=== PATIENT | male | born 1955 | race Caucasian/White ===

== ENCOUNTER 2017-04-17 10:35 | Observation (INO) | payer OTHER ==
[~2017-04-17] VITALS: Ht 182.9 cm; Wt 161.0 kg
[~2017-04-17 10:35] MED LIST: CEPHALEXIN500 MG PO; CIPRO 500MG TA500 MG PO; PERCOCET 325 MG1 TA2 PO
[2017-04-17 11:42] LABS: ABSOLUTE BASOPHIL COUNT 0.1 /CUMM (0.0-0.2); ABSOLUTE EOSINOPHIL COUNT 0.5 /CUMM (0.0-0.7); ABSOLUTE GRANULOCYTE CT 8.8 /CUMM (1.4-6.5); ABSOLUTE LYMPH COUNT 2.3 /CUMM (1.2-3.4); BASOPHIL % 0.7 % (0.0-2.0); EOSINOPHIL % 3.8 % (0-5); GRANULOCYTE % 69.5 % (42.2-75.2); HEMATOCRIT 50.7 % (42-52); MEAN CORPUSCULAR HGB 32.8 PG (27.0-31.0); MEAN CORPUSCULAR HGB CONC 34.2 G/DL (33.0-37.0); MEAN CORPUSCULAR VOLUME 95.7 FL (80.0-94.0); MEAN PLATELET VOLUME 7.9 FL (7.4-10.4); PLATELET COUNT 248 /CUMM (130-400); RBC DISTRIBUTION WIDTH 13.5 % (11.5-14.5); RED BLOOD CELL CT 5.29 /CUMM (4.70-6.10); WHITE BLOOD CELL COUNT 12.7 /CUMM (4.8-10.8)
--- NOTE | 2017-04-17 12:24 | ED CARDIAC/CP/PALPITATIONS ---
History of Present Illness General Chief Complaint: Chest Pain Stated Complaint: CHEST PAIN Source: patient Exam Limitations: no limitations Vital Signs & Intake/Output Vital Signs & Intake/Output Vital Signs Date Time Temp Pulse Resp B/P B/P Pulse O2 O2 Flow FiO2 Mean Ox Delivery Rate 04/17 1628 97.3 66 16 137/79 95 Room Air 04/17 1315 97.8 68 18 110/59 95 Room Air 04/17 1039 98.4 69 18 166/100 98 Room Air Allergies Coded Allergies: NO KNOWN ALLERGIES (03/15/13) NKA PER ANTIBIOTIC ORDER SHEET OF 03/15/13 - S Reconcile Medications Ascorbate Calcium (Vitamin C) 500 MG TABLET 1 TAB PO DAILY SUPPLEMENT ( Reported) Aspirin (Adult Low Dose Aspirin EC) 81 MG TABLET.DR 1 TAB PO DAILY HEART/BP ( Reported) Atenolol 50 MG TABLET 1 TAB PO DAILY BP (Reported) Atorvastatin Calcium (Lipitor) 80 MG TABLET 1 TAB PO DAILY CHOLESTEROL ( Reported) Cholecalciferol (Vitamin D3) (Vitamin D) 1,000 UNIT TABLET 1 TAB PO DAILY SUPPLEMENT (Reported) Cyanocobalamin (Vitamin B-12) (Unknown Strength) TABLET (Unknown Dose) PO DAILY SUPPLEMENT (Reported) Diclofenac Sodium 75 MG TABLET.DR 1 TAB PO BID PAIN/INFLAMMATION (Reported) Empagliflozin (Jardiance) 25 MG TABLET 1 TAB PO DAILY DM (Reported) Ezetimibe (Zetia) 10 MG TABLET 1 TAB PO DAILY CHOLESTEROL (Reported) Metformin HCl 500 MG TABLET 1 TAB PO 4XDAILY DM (Reported) [place]-3 Fatty Acids/Fish Oil (Fish Oil 1,200 MG Softgel) 360 MG-1,200 MG CAPSULE 1 CAP PO DAILY SUPPLEMENT (Reported) Ramipril 10 MG CAPSULE 1 CAP PO DAILY BP (Reported) Venlafaxine HCl (Venlafaxine HCl ER) 75 MG CAP.ER.24H 1 CAP PO DAILY MENTAL HEALTH (Reported) Triage Note: 61 YO MALE TO TRIAGE C/O L SIDED CHEST PAIN X4 DAYS. STATES PAIN SITS IN L SIDE OF CHEST. DENIES NAUSEA/VOMTIING. C/O SLIGHT SOB. HX OF FL, HTN, HIGH CHOLESTEROL. Triage Nurses Notes Reviewed? yes Onset: Abrupt Duration: day(s): (5) Timing: recent history Quality/Severity: moderate, severe Radiation: no radiation Activities at Onset: none HPI: 61-year-old male comes into the emergency room for further evaluation of left- sided chest pain. Symptoms began going on for the past 5 days or so. Sharp. Pain improved with a deep breath. Worse with sitting or standing. Denies any nausea vomiting or shortness of breath. History of cardiac stent placed back in 1998. Patient sees Dr. Hanks. He is a current every day smoker. (Homar Schwartz) Past History Travel History Traveled to [place] past 21 day No Medical History Any Pertinent Medical History? 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 No (Homar Schwartz) Review of Systems Review of Systems Constitutional: Reports: no symptoms. EENTM: Reports: no symptoms. Respiratory: Reports: no symptoms. Cardiovascular: Reports: see HPI. GI: Reports: no symptoms. Genitourinary: Reports: no symptoms. Musculoskeletal: Reports: see HPI. Skin: Reports: no symptoms. Neurological/Psychological: Reports: no symptoms. Hematologic/Endocrine: Reports: no symptoms. Immunologic/Allergic: Reports: no symptoms. All Other Systems: Reviewed and Negative (Homar Schwartz) Physical Exam Physical Exam General Appearance: well developed/nourished, no apparent distress, alert, awake Head: atraumatic, normal appearance Eyes: Bilateral: normal appearance. Ears, Nose, Throat: normal pharynx, normal ENT inspection, hearing grossly normal Neck: normal inspection Respiratory: normal breath sounds, no respiratory distress Cardiovascular: regular rate/rhythm Gastrointestinal: soft Back: normal inspection Extremities: normal inspection, no edema Neurologic/Psych: awake, alert, oriented x 3, normal gait, normal mood/affect Skin: intact, normal color Core Measures ACS in differential dx? No CVA/TIA Diagnosis No Sepsis Present: No Sepsis Focused Exam Completed? No (Homar Schwartz) Progress Differential Diagnosis: AMI, cholecystitis, costochondritis, musculoskeletal pain, myocarditis, pancreatitis, pericarditis, pneumonia, pneumothorax, pulmonary embolism, PUD/GERD, respiratory failure, sepsis, unstable angina Plan of Care: Orders Procedure Date/time Status Heart Healthy Diet 04/[address] in observation 04/17 181 Active ED Holding Orders 04/17 1735 Active Vital Signs 04/17 1735 Active Code Status 04/17 1735 Active URINALYSIS 04/17 1655 Active TROPONIN LEVEL 04/17 1515 Complete EKG 04/17 1515 Active Add-on Test (ER Only) 04/17 1134 Active D-DIMER 04/17 1130 Complete Add-on Test (ER Only) 04/17 1127 Active Telemetry/Certified Personal Trainer 04/17 1100 Active TROPONIN LEVEL 04/17 1100 Complete LIPASE 04/17 1100 Complete COMPREHENSIVE METABOLIC PANEL 04/17 1100 Complete CBC WITHOUT DIFFERENTIAL 04/17 1100 Complete EKG 04/17 1036 Active Laboratory Tests 04/17/17 1600: Troponin I < 0.01 04/17/17 1211: Anion Gap 12, Estimated GFR > 60, BUN/Creatinine Ratio 24.3, Glucose 101 H, Calcium 9.5, Total Bilirubin 0.6, AST 27, ALT 49, Alkaline Phosphatase 95, Troponin I < 0.01, Total Protein 7.2, Albumin 4.4, Globulin 2.8, Albumin/ Globulin Ratio 1.6, Lipase 256, D-Dimer High Sensitivty < 200 04/17/17 1125: CBC w Diff NO MAN DIFF REQ, RBC 5.29, MCV 95.7 H, MCH 32.8 H, RDW 13.5, MPV 7.9, Gran % 69.5, Lymphocytes % 18.1 L, Monocytes % 7.9, Eosinophils % 3.8, Basophils % 0.7, Absolute Granulocytes 8.8 H, Absolute Lymphocytes 2.3, Absolute Monocytes 1.0 H, Absolute Eosinophils 0.5, Absolute Basophils 0.1, PUBS MCHC 34.2 Diagnostic Imaging: Viewed by Me: Radiology Read, CT Scan. Discussed w/RAD: Radiology Read, CT Scan. Radiology Impression: PATIENT: NATHAN SINGER PRESENT AGE: 61 PATIENT ACCOUNT NO: [id number] : 55 LOCATION: [facility] ORDERING PHYSICIAN: Homar MOCTEZUMA SERVICE DATE: 04/17/17 EXAM TYPE: RAD - XRY-CHEST XRAY, PA AND LATERAL EXAMINATION: XR CHEST CLINICAL INFORMATION: Chest pain COMPARISON: 02/05/2012 TECHNIQUE: 2 views of the chest were obtained. FINDINGS: The lungs are well expanded. There is no focal consolidation, edema, or effusion. No pneumothorax. The cardiomediastinal silhouette is within normal limits. No acute osseous abnormality. Mild degenerative changes in the spine. IMPRESSION: No acute pulmonary findings. DICTATED BY: Vaibhav Toth MD DATE /TIME DICTATED:04/17/171221 CAR SCRUBBER:DACIA DATE/TIME TRANSCRIBED: 04/17/171221 CONFIDENTIAL, DO NOT COPY WITHOUT APPROPRIATE AUTHORIZATION. < Electronically signed in Other Vendor System> SIGNED BY: Janey BRYAN, Vaibhav 04/17/171225, PATIENT: NATHAN SINGER PRESENT AGE: 61 PATIENT ACCOUNT NO: [id number] : 55 LOCATION: ER ORDERING PHYSICIAN: Homar MOCTEZUMA SERVICE DATE: 04/17/17 EXAM TYPE: CAT - CT ABD & PELVIS W/O IV CONTRAS EXAMINATION: CT ABDOMEN AND PELVIS WITHOUT CONTRAST CLINICAL INFORMATION: Abdominal pain, epigastric. COMPARISON: None TECHNIQUE: Multidetector volumetric imaging was performed from the superior aspect of the liver through the pubic symphysis. Sagittal and coronal reformatted images were obtained on the technologist's workstation. DLP: 1672.3 mGy-cm FINDINGS: LUNG BASES: The visualized lung bases are unremarkable. LIVER, GALLBLADDER, AND BILIARY TREE: The liver is normal in size, shape, and attenuation. No focal hepatic lesion or biliary ductal dilatation is present. There is a punctate 3 mm calcification at the lateral margin of the gallbladder which is of uncertain etiology, either a small stone or calcification within the wall. The gallbladder is otherwise unremarkable with no gallbladder wall thickening or obvious pericholecystic inflammatory changes. PANCREAS: Unremarkable. SPLEEN: Unremarkable. ADRENAL GLANDS: Unremarkable. KIDNEYS AND URETERS: The kidneys are normal in size, shape, and attenuation. No hydronephrosis, hydroureter, or calculi seen. There is moderate bilateral perinephric stranding. BLADDER: Decompressed. GASTROINTESTINAL TRACT: Stomach, small bowel, and colon are normal in caliber. No bowel wall thickening or surrounding inflammatory changes. Appendix is normal. No intraperitoneal free fluid or free air. ABDOMINAL WALL: No significant hernia is appreciated. LYMPH NODES: Normal. VASCULAR: Mild calcific atherosclerosis is present in the abdominal aorta and iliac arteries. No aneurysmal dilatation. PELVIC VISCERA: The prostate and seminal vesicles are unremarkable. OSSEOUS STRUCTURES: Multilevel degenerative disc disease is present in the lower thoracic and lower lumbar spine. There is marked facet arthropathy in the lumbar spine at L4-L5 and S1 with grade 1 anterolisthesis of L4 on L5. Mild degenerative arthritis present in the hips and SI joints. IMPRESSION: 1. No acute intra-abdominal or intrapelvic abnormalities. 2. Bilateral perinephric stranding. This is nonspecific and may be chronic in nature, though consider correlation with urinalysis to exclude underlying urinary tract infection. 3. Multilevel degenerative disc disease and facet arthropathy in the lumbar spine DICTATED BY: Chele Wade MD DATE/TIME DICTATED:04/17/171636 CAR SCRUBBER:DACIA DATE/TIME TRANSCRIBED:04/17/171636 CONFIDENTIAL, DO NOT COPY WITHOUT APPROPRIATE AUTHORIZATION. <Electronically signed in Other Vendor System> SIGNED BY: Chele Wade MD 04/17/171651, PATIENT: NATHAN SINGER PRESENT AGE: 61 PATIENT ACCOUNT NO: [id number] : 55 LOCATION: [facility] ORDERING PHYSICIAN: Homar MOCTEZUMA SERVICE DATE: 04/17/171344 EXAM TYPE: CAT - CT ABD & PELVIS W/O IV CONTRAS EXAMINATION: CT ABDOMEN AND PELVIS WITHOUT CONTRAST CLINICAL INFORMATION: Abdominal pain, epigastric. COMPARISON: None TECHNIQUE: Multidetector volumetric imaging was performed from the superior aspect of the liver through the pubic symphysis. Sagittal and coronal reformatted images were obtained on the technologist's workstation. DLP: 1672.3 mGy-cm FINDINGS: LUNG BASES: The visualized lung bases are unremarkable. LIVER, GALLBLADDER, AND BILIARY TREE: The liver is normal in size, shape, and attenuation. No focal hepatic lesion or biliary ductal dilatation is present. There is a punctate 3 mm calcification at the lateral margin of the gallbladder which is of uncertain etiology, either a small stone or calcification within the wall. The gallbladder is otherwise unremarkable with no gallbladder wall thickening or obvious pericholecystic inflammatory changes. PANCREAS: Unremarkable. SPLEEN: Unremarkable. ADRENAL GLANDS: Unremarkable. KIDNEYS AND URETERS: The kidneys are normal in size, shape, and attenuation. No hydronephrosis, hydroureter, or calculi seen. There is moderate bilateral perinephric stranding. BLADDER: Decompressed. GASTROINTESTINAL TRACT: Stomach, small bowel, and colon are normal in caliber. No bowel wall thickening or surrounding inflammatory changes. Appendix is normal. No intraperitoneal free fluid or free air. ABDOMINAL WALL: No significant hernia is appreciated. LYMPH NODES: Normal. VASCULAR: Mild calcific atherosclerosis is present in the abdominal aorta and iliac arteries. No aneurysmal dilatation. PELVIC VISCERA: The prostate and seminal vesicles are unremarkable. OSSEOUS STRUCTURES: Multilevel degenerative disc disease is present in the lower thoracic and lower lumbar spine. There is marked facet arthropathy in the lumbar spine at L4-L5 and S1 with grade 1 anterolisthesis of L4 on L5. Mild degenerative arthritis present in the hips and SI joints. IMPRESSION: 1. No acute intra-abdominal or intrapelvic abnormalities. 2. Bilateral perinephric stranding. This is nonspecific and may be chronic in nature, though consider correlation with urinalysis to exclude underlying urinary tract infection. 3. Multilevel degenerative disc disease and facet arthropathy in the lumbar spine DICTATED BY: Chele Wade MD DATE/TIME DICTATED:04/17/171636 CAR SCRUBBER:DACIA DATE/TIME TRANSCRIBED:04/17/171636 CONFIDENTIAL, DO NOT COPY WITHOUT APPROPRIATE AUTHORIZATION. <Electronically signed in Other Vendor System> SIGNED BY: Chele Wade MD 04/17/17 1652 Initial ED EKG: normal sinus rhythm, AFIB (70) (Homar Schwartz) Departure Departure Disposition: STILL A PATIENT Condition: Stable Clinical Impression Primary Impression: Chest pain with moderate risk for cardiac etiology Referrals: Mitchel BRYAN,Gabriel Kim (PCP/Family) Departure Forms: Customer Survey General Discharge Information Observation Note Spoke With: Christa Lopez MD Physician Advisor Notified: NATHAN HERNANDEZ DO Place Patient In: Non-ED OBS Care Area Rationale for Observation: My rational for observation is as follows . Patient will require cardiac consultation. Spoke with Dr. guallpa. Serial troponins. Serial labs. History of coronary disease. Patient still having chest pain. Iris. Medically safe for discharge. (Homar Schwartz) PA/RADIOISOTOPE TECHNICIAN Co-Sign Statement Statement: ED Attending supervision documentation- [x] I saw and evaluated the patient. I have also reviewed all the pertinent lab results and diagnostic results. I agree with the findings and the plan of care as documented in the PA's/RADIOISOTOPE TECHNICIAN's documentation. [] I have reviewed the ED Record and agree with the PA's/RADIOISOTOPE TECHNICIAN's documentation. [] Additions or exceptions (if any) to the PAs/RADIOISOTOPE TECHNICIAN's note and plan are summarized below: [] (Nathan Hernandez DO) Critical Care Note Critical Care Note Critical Care Time: non-applicable (Homar Schwartz)
[2017-04-17] MEDS ORDERED: LIPITOR80 M1 PO (16:32)
[2017-04-17] MEDS ORDERED: ATENOLOL50 M1 PO (16:32)
[2017-04-17] MEDS ORDERED: RAMIPRIL10 M1 PO (16:32)
[2017-04-17] MEDS ORDERED: DICLOFENAC SODI75 M2 PO (16:33)
[2017-04-17] MEDS ORDERED: ZETIA10 M1 PO (16:33)
[2017-04-17] MEDS ORDERED: VENLAFAXINE HCL75 M1 PO (16:33)
[2017-04-17] MEDS ORDERED: VITAMIN D1000 UNIT PO (16:34)
[2017-04-17] MEDS ORDERED: ADULT LOW DOSE81 MG PO (16:34)
[2017-04-17] MEDS ORDERED: METFORMIN HCL500 M3 PO (16:34)
[2017-04-17] MEDS ORDERED: JARDIANCE25 M1 PO (16:34)
[2017-04-17] MEDS ORDERED: VITAMIN B-121000 MC3 PO (16:35)
[2017-04-17] MEDS ORDERED: VITAMIN C500 M6 PO (16:35)
[2017-04-17] MEDS ORDERED: FISH OIL 1,2001 EAC4 PO (16:35)
--- NOTE | 2017-04-17 16:52 | CT SCAN REPORT ---
EXAMINATION: CT ABDOMEN AND PELVIS WITHOUT CONTRAST CLINICAL INFORMATION: Abdominal pain, epigastric. COMPARISON: None TECHNIQUE: Multidetector volumetric imaging was performed from the superior aspect of the liver through the pubic symphysis. Sagittal and coronal reformatted images were obtained on the technologist's workstation. DLP: 1672.3 mGy-cm FINDINGS: LUNG BASES: The visualized lung bases are unremarkable. LIVER, GALLBLADDER, AND BILIARY TREE: The liver is normal in size, shape, and attenuation. No focal hepatic lesion or biliary ductal dilatation is present. There is a punctate 3 mm calcification at the lateral margin of the gallbladder which is of uncertain etiology, either a small stone or calcification within the wall. The gallbladder is otherwise unremarkable with no gallbladder wall thickening or obvious pericholecystic inflammatory changes. PANCREAS: Unremarkable. SPLEEN: Unremarkable. ADRENAL GLANDS: Unremarkable. KIDNEYS AND URETERS: The kidneys are normal in size, shape, and attenuation. No hydronephrosis, hydroureter, or calculi seen. There is moderate bilateral perinephric stranding. BLADDER: Decompressed. GASTROINTESTINAL TRACT: Stomach, small bowel, and colon are normal in caliber. No bowel wall thickening or surrounding inflammatory changes. Appendix is normal. No intraperitoneal free fluid or free air. ABDOMINAL WALL: No significant hernia is appreciated. LYMPH NODES: Normal. VASCULAR: Mild calcific atherosclerosis is present in the abdominal aorta and iliac arteries. No aneurysmal dilatation. PELVIC VISCERA: The prostate and seminal vesicles are unremarkable. OSSEOUS STRUCTURES: Multilevel degenerative disc disease is present in the lower thoracic and lower lumbar spine. There is marked facet arthropathy in the lumbar spine at L4-L5 and S1 with grade 1 anterolisthesis of L4 on L5. Mild degenerative arthritis present in the hips and SI joints. IMPRESSION: 1. No acute intra-abdominal or intrapelvic abnormalities. 2. Bilateral perinephric stranding. This is nonspecific and may be chronic in nature, though consider correlation with urinalysis to exclude underlying urinary tract infection. 3. Multilevel degenerative disc disease and facet arthropathy in the lumbar spine
--- NOTE | 2017-04-17 18:35 | History & Physical ---
Zach BRYAN,[facility] 04/17/17 1834: General Information and HPI MD Statement: I have seen and personally examined SAI SINGER and documented this H&P. The patient is a 61 year old M who presented with a patient stated chief complaint of [chest pain]. Source of Information: patient Exam Limitations: no limitations History of Present Illness: The patient is 61-year-old obese male with past medical history of hypertension hyperlipidemia CAD status post RCA stent in 1998 and diabetes. The patient presented to [place] ED on 04/17 with the complaint of left-sided chest pain. The patient was in usual state of health until 5 days ago when he started experiencing left-sided chest pain, 6 to 7/10, sharp in character, constant, relieved by leaning forward and worsened by lying down and deep breathing. He has never experienced this before. He denies any recent infections URI, no sick contacts, no history of trauma. Patient was denied any fevers, chills, nausea, palpitations, shortness of breath , diaphoresis or lightheadedness/dizziness. Patient follows up with Dr. Shira valenzuela every 6 months, states last echo was a while ago. No history of Renal failure or GI bleed. Allergies/Medications Allergies: Coded Allergies: NO KNOWN ALLERGIES (03/15/13) NKA PER ANTIBIOTIC ORDER SHEET OF 03/15/13 - [facility] Home Med list Ascorbate Calcium (Vitamin C) 500 MG TABLET 1 TAB PO DAILY SUPPLEMENT ( Reported) Aspirin (Adult Low Dose Aspirin EC) 81 MG TABLET.DR 1 TAB PO DAILY HEART/BP ( Reported) Atenolol 50 MG TABLET 1 TAB PO DAILY BP (Reported) Atorvastatin Calcium (Lipitor) 80 MG TABLET 1 TAB PO DAILY CHOLESTEROL ( Reported) Cholecalciferol (Vitamin D3) (Vitamin D) 1,000 UNIT TABLET 1 TAB PO DAILY SUPPLEMENT (Reported) Cyanocobalamin (Vitamin B-12) (Unknown Strength) TABLET (Unknown Dose) PO DAILY SUPPLEMENT (Reported) Diclofenac Sodium 75 MG TABLET.DR 1 TAB PO BID PAIN/INFLAMMATION (Reported) Empagliflozin (Jardiance) 25 MG TABLET 1 TAB PO DAILY DM (Reported) Ezetimibe (Zetia) 10 MG TABLET 1 TAB PO DAILY CHOLESTEROL (Reported) Metformin HCl 500 MG TABLET 1 TAB PO 4XDAILY DM (Reported) Heth-3 Fatty Acids/Fish Oil (Fish Oil 1,200 MG Softgel) 360 MG-1,200 MG CAPSULE 1 CAP PO DAILY SUPPLEMENT (Reported) Ramipril 10 MG CAPSULE 1 CAP PO DAILY BP (Reported) Venlafaxine HCl (Venlafaxine HCl ER) 75 MG CAP.ER.24H 1 CAP PO DAILY MENTAL HEALTH (Reported) Past History Travel History Traveled to [place] past 21 day No Medical History Neurological: NONE EENT: NONE Cardiovascular: hypertension, hyperlipidemia, myocardial infarction Hepatic: NONE Musculoskeletal: NONE Psychiatric: NONE Endocrine: diabetes Blood Disorders: NONE Cancer(s): NONE 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 Psychosocial History Where do you live? Home Who Do You Live With? spouse Smoking Status: Current Everyday Smoker ETOH Use: denies use Illicit Drug Use: denies illicit drug use Functional Ability ADLs Independent: dressing, eating, toileting, bathing. Ambulation: independent IADLs Independent: shopping, housework, finances, food prep, telephone, transportation , medication admin. Review of Systems Review of Systems Constitutional: Denies: chills, fever. EENTM: Reports: no symptoms. Cardiovascular: Reports: chest pain. Respiratory: Denies: see HPI, cough, hemoptysis, sputum production. GI: Reports: no symptoms. Genitourinary: Reports: no symptoms. Skin: Reports: no symptoms. Exam & Diagnostic Data Last 24 Hrs of Vital Signs/I&O Vital Signs Date Time Temp Pulse Resp B/P B/P Pulse O2 O2 Flow FiO2 Mean Ox Delivery Rate 04/17 1850 97.3 73 16 128/73 94 Room Air 04/17 1628 97.3 66 16 137/79 95 Room Air 04/17 1315 97.8 68 18 110/59 95 Room Air 04/17 1039 98.4 69 18 166/100 98 Room Air Intake & Output 04/17 1600 04/17 0800 04/17 0000 Intake Total 120 Output Total Balance 120 Intake, Oral 120 Patient 355 lb Weight Weight Reported by Patient Measurement Method Physical Exam General Appearance Alert, Oriented X3, Cooperative, No Acute Distress, Mild Distress Skin No Rashes HEENT Atraumatic, PERRLA, EOMI Neck Supple Cardiovascular Normal S1, Normal S2, No Murmurs, Gallops, Rubs Lungs Clear to Auscultation, Normal Air Movement Abdomen Normal Bowel Sounds, Soft, No Tenderness Neurological Normal Gait, Normal Speech, Strength at 5/5 X4 Ext, Normal Tone, Sensation Intact, Cranial Nerves 3-12 NL Extremities No Clubbing, No Cyanosis, No Tenderness/Swelling, b/l edema +1 Last 24 Hrs of Labs/Fernie: Laboratory Tests 04/17/17 1600: Troponin I < 0.01 04/17/17 1211: Anion Gap 12, Estimated GFR > 60, BUN/Creatinine Ratio 24.3, Glucose 101 H, Calcium 9.5, Total Bilirubin 0.6, AST 27, ALT 49, Alkaline Phosphatase 95, Troponin I < 0.01, Total Protein 7.2, Albumin 4.4, Globulin 2.8, Albumin/ Globulin Ratio 1.6, Lipase 256, D-Dimer High Sensitivty < 200 04/17/17 1125: CBC w Diff NO MAN DIFF REQ, RBC 5.29, MCV 95.7 H, MCH 32.8 H, RDW 13.5, MPV 7.9, Gran % 69.5, Lymphocytes % 18.1 L, Monocytes % 7.9, Eosinophils % 3.8, Basophils % 0.7, Absolute Granulocytes 8.8 H, Absolute Lymphocytes 2.3, Absolute Monocytes 1.0 H, Absolute Eosinophils 0.5, Absolute Basophils 0.1, PUBS MCHC 34.2 Diagnostic Data EKG Results Normal sinus rhythm with SC prolongation QTC 408 CXR Results The lungs are well expanded. There is no focal consolidation, edema, or effusion. No pneumothorax. The cardiomediastinal silhouette is within normal limits. No acute osseous abnormality. Mild degenerative changes in the spine. IMPRESSION: No acute pulmonary findings. Other Results CT ABD & PELVIS W/O IV CONTRAS IMPRESSION: 1. No acute intra-abdominal or intrapelvic abnormalities. 2. Bilateral perinephric stranding. This is nonspecific and may be chronic in nature, though consider correlation with urinalysis to exclude underlying urinary tract infection. 3. Multilevel degenerative disc disease and facet arthropathy in the lumbar spine Assessment/Plan Assessment: The patient is 61-year-old obese male with past medical history of hypertension hyperlipidemia CAD status post RCA stent in 1998 and diabetes. The patient presented to [place] ED on 04/17 with the complaint of left-sided chest pain. -Vitals at time of presentation temperature 98.4,HR 69, RR 18, blood pressure 166/100 (recheck 110/59), 98% on room air. -Pertinent labs WBC 12.7 mg, troponins 2 sets negative -The patient is being admitted to telemetry floor as observation and is being evaluated and treated for following conditions #Suspected Percarditis Patient describes the chest pain suspicious of pericarditis.though no EKG changes * Continuous telemetry monitoring for 24 hours * Serial EKG and troponins to rule out ACS * Echocardiogram * Cardiology consult placed with Dr. Eller's group * High-dose ibuprofen 600 mg TID #Diabetes mellitus * Accu-Cheks and insulin sliding scale * Holding metformin and jardiance #Obesity * Consider checking TSH, HbA1c and lipid panel * Counselling on lifestyle modification #Smoker * Nicotine patch * Counselling on smoking cessation #Chronic medical conditions history of CAD status post catheterization, hyperlipidemia, hypertension continue aspirin lisinopril, atenolol and atorvastatin,zetia #Mental health continue Venlafaxine #Obstructive sleep apnea continue CPAP #GI prophylaxis in setting of high dose NSAIDs with PPI #DVT prophylaxis with Lovenox and Alps #Diet Heart healthy #CODE STATUS full code As Ranked By This Provider Problem List: 1. Chest pain with moderate risk for cardiac etiology Core Measures/Misc (01/05) Acute Coronary Syndrome ACS Diagnosis: No Congestive Heart Failure Congestive Heart Failure Diagnosis No Cerebrovascular Accident CVA/TIA Diagnosis: No VTE (View Protocol) VTE Risk Factors Age>40 No Mechanical VTE Prophylaxis d/t N/A MechProphylax Ordered No VTE Pharm Prophylaxis d/t NA PharmProphylax ordered Sepsis (View protocol) Sepsis Present: No Millie Krishnamurthy 04/17/17 1845: Resident Review Statement Resident Statement: examined this patient, discussed with sourcing intern Other Findings: Patient is a 61-year-old gentleman with a past medical history significant for coronary artery disease status post cardiac cath in 1998, history of hypertension and hyperlipidemia, presented to the ED with chief complaints of left-sided chest pain for the last for 5 days. Patient described the pain as constant, sharp in character, nonradiating, aggravating with lying flat and on deep breaths , alleviating on leaning forward. Denied any associated shortness of breath palpitations denies any nausea vomiting sweating denied any recent infections fever or chills. Denies any sick contacts/trauma. Other review of systems is negative. Patient is a current every a smoker smokes half a pack a day(quit smoking before, started smoking again 2001). Denies any drinking or illicit drug use. On examination General Exam: AAOx3, No acute distress, Skin: No rashes, no breakdown HEENT: PERRLA, EOMI;Neck: Supple, No JVD; No cervical lymphadenopathy CVS: Reg Rate, Normal S1,S2, No MGR Resp: Normal breath sounds bilaterally Abdomen: Soft, No tenderness, Normal Bowel Sounds. Neuro: Normal Speech, Strength 5/5 b/l x 4 extremities, Sensation intact, CN III -XII NL, Reflexes 2+ Extremities: No cyanosis, 1+ pedal edema. Admission on admission temperature 98.4, pulse 69, was. Rate 18, blood pressure 166/100 on room air. Pertinent labs on admission: Leukocytosis 12.7 without bandemia, H&H stable. 2 sets of troponin negative EKG in the ED showed: Normal sinus rhythm with SC prolongation to 12 QTC 408 w/o significant STT changes depression. CT abd/pelvis: No acute intra-abdominal or intrapelvic abnormalities. 2. Bilateral perinephric stranding. This is nonspecific and may be chronic in nature, though consider correlation with urinalysis to exclude underlying urinary tract infection. 3. Multilevel degenerative disc disease and facet arthropathy in the lumbar spine Assessment and plan: Patient is a 61-year-old gentleman with a past medical history significant for coronary artery disease status post cardiac cath in 1998, history of hypertension and hyperlipidemia, presented to the ED with chief complaints of left-sided chest pain for the last for 5 days. Problem list Constant chest pain likely Acute Viral pericarditis History of coronary artery disease status post catheterization 1998 History of hypertension History of hyperlipidemia History of diabetes Plan Constant chest pain likely Acute Viral pericarditis * Will keep the patient in observation for 24 hours on telemetry floor. * Since the suspicion of pericarditis (with the evidence of mild leucocytosis), we'll start the patient on high-dose ibuprofen 600 mg 3 times a day. * check UA * Start PPI for GI prophylaxis. * Rule out ACS: 2 sets of troponin are negative, EKG did not reveal any STT changes, will do another set of troponin and EKG. * Obtain echocardiogram. * Inform cardiology. * Watch for any hemodynamic instability. History of coronary artery disease status post catheterization 1998 * Continue aspirin, lisinopril, high-dose atorvastatin, beta terell . History of hypertension * Continue antihypertensives History of hyperlipidemia * Atorvastatin History of diabetes * Hold metformin * Start the patient on NovoLog sliding scale Accu-Cheks. Hx of Obstructive sleep apnea * continue CPAP DVT prophylaxis with Lovenox Pain control with ibuprofen Patient is full code Maury BRYAN, [facility] 04/17/172027: Attending MD Review Statement Attending Statement Attending MD Statement: examined this patient, discuss w/resident/PA/LINE LOCATOR, agreed w/resident/PA/LINE LOCATOR, discussed with family, reviewed images, amended to note Attending Assessment/Plan: 61 yo M with h/o CAD s/p RCA stent (1998), HTN, T2DM, ETHEL on CPAP, depression, is here for c/o left sided chest pain. 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 He denies any obvious trauma but reports rough impacts while plowing. 1 week back, he noticed sharp pain under the left breast, that is non radiating, constant pain, worse with inspiration and lying down, gets better with leaning forward. No relation to food or exertion. This chest discomfort is not similar to his previous HI (he had CP with hand paresthesias). He tried single doses of aleve and motrin without any relief. He denies palpitations, dyspnea, nausea, lightheadedness or diaphoresis. Of note , he reports having URI (rhinorrhea, cough, congestion) symptoms about 2 weeks back that self resolved. C/o chills but no fever. He is a current everyday smoker. He follows with Dr. Fine (Cardio) and his most recent stress test was 1 year ago- normal per patient. Vitals stable. Exam unremarkable, chest pain is not reproducible. Labs: WBC 12.7 , macrocytosis, D-dimer < 200, bicarb 21, BUN 17, creat 0.7, glucose 101, trop neg, CRP neg. UA clear except for glucosuria. CXR: no acute changes. CT abd/ pelvis: nothing acute, bilateral perinephric stranding seems nonspecific and chronic. EKG: sinus rhythm with first degree AV block, TWI in lead III, Qtc 415, otherwise no evidence of diffuse ST elevations or SC depressions. Assessment and plan: 1. Left sided chest pain rule out ACS 2. Possible acute viral pericarditis 3. History of CAD s/p RCA stent 4. History of T2DM and HTN 5. Current smoker 6. ETHEL on CPAP - 23 hour observation on Telemetry - Serial EKG and troponin - Obtain Echo - Initiate Ibuprofen 600 mg TID with PPI (Patient has no h/o renal failure or GI bleed) - Cardio consult (Dr. Fine) - Check TSH, free T4, lipid panel, HbA1c. - Continue aspirin, atenolol, lipitor, zetia, ramipril and venlafaxine. - Smoking cessation counseling - Hold metformin and jardiance, initiate insulin SS. - Continue CPAP at night. DVT ppx Lovenox. Full code. Observation Initial Note - I have personally examined LUCRECIASAI on 04/17/17 at 2030. The disposition of LUCRECIASAI is uncertain at this time and before a determination can be made, he requires a period of observation for the following reasons [Chest pain, rule out ACS]
[2017-04-17 20:18] VITALS: BP 158/88
[2017-04-17 23:02] VITALS: BP 158/86
[2017-04-18 06:57] VITALS: BP 144/88
[2017-04-18 08:38] LABS: ABSOLUTE BASOPHIL COUNT 0.1 /CUMM (0.0-0.2); ABSOLUTE EOSINOPHIL COUNT 0.5 /CUMM (0.0-0.7); ABSOLUTE GRANULOCYTE CT 6.1 /CUMM (1.4-6.5); ABSOLUTE LYMPH COUNT 2.4 /CUMM (1.2-3.4); ABSOLUTE MONOCYTE COUNT 0.8 /CUMM (0.10-0.60); BASOPHIL % 0.8 % (0.0-2.0); EOSINOPHIL % 4.8 % (0-5); GRANULOCYTE % 61.6 % (42.2-75.2); HEMATOCRIT 52.2 % (42-52); MEAN CORPUSCULAR HGB 32.7 PG (27.0-31.0); MEAN CORPUSCULAR HGB CONC 33.7 G/DL (33.0-37.0); MEAN CORPUSCULAR VOLUME 96.9 FL (80.0-94.0); MEAN PLATELET VOLUME 8.5 FL (7.4-10.4); PLATELET COUNT 236 /CUMM (130-400); RBC DISTRIBUTION WIDTH 13.8 % (11.5-14.5); RED BLOOD CELL CT 5.38 /CUMM (4.70-6.10)
[2017-04-18 10:41] VITALS: BP 110/72
--- NOTE | 2017-04-18 12:11 | ECHOCARDIOGRAM REPORT ---
SAI SINGER Age: 61 : 1955 Gender: M Exam Date: 04/18/2017 08:03 Exam Location: 1 [address] Ht (in): 72 Wt (lb): 355 BSA: 2.94 BP: 144 / 88 Ordering Physician: Millie Krishnamurthy MD Referring Physician: Millie Krishnamurthy MD Technologist: Giovanny Disla [facility] Room Number: [id number] Indications: CHEST PAIN Rhythm: Technical Quality: FINDINGS Left Ventricle Left ventricular cavity size normal. Left ventricular wall thickness mildly increased. No obvious regional wall motion abnormalities. Left ventricular ejection fraction is estimated at > 55 %. Abnormal relaxation filling pattern of the left ventricle for age (stage 1 diastolic dysfunction). Right Ventricle Normal right ventricular size and function. Right Atrium Normal right atrial size. Left Atrium Normal left atrial size. Mitral Valve Structurally normal mitral valve. Trace mitral regurgitation. Aortic Valve Trileaflet aortic valve. No aortic stenosis. Tricuspid Valve Structurally normal tricuspid valve. Trace tricuspid regurgitation. Unable to estimate the right ventricular systolic pressure. Pulmonic Valve Pulmonic valve not well visualized, grossly normal. Pericardium No pericardial effusion. Great Vessels Normal size aortic root. CONCLUSIONS Left ventricular cavity size normal. Left ventricular wall thickness mildly increased. No obvious regional wall motion abnormalities. Left ventricular ejection fraction is estimated at > 55 %. Abnormal relaxation filling pattern of the left ventricle for age (stage 1 diastolic dysfunction). Normal right ventricular size and function. No pericardial effusion. Scot Jolly M.D. (Electronically Signed) Final Date: 18 April 2017 12:10 MEASUREMENTS (Male / Female) Normal Values 2D ECHO LV Diastolic Diameter PLAX 6.1 cm 4.2 - 5.9 / 3.9 - 5.3 cm LV Systolic Diameter PLAX 3.4 cm 2.1 - 4.0 cm LV Fractional Shortening PLAX 44.3 % 25 - 46 % LV Ejection Fraction 2D Teich 74.6 % IVS Diastolic Thickness 1.1 cm LVPW Diastolic Thickness 1.1 cm LV Relative Wall Thickness 0.4 RV Internal Dim ED PLAX 4.5 cm 1.9 - 3.8 cm LVOT Diameter 2.1 cm Aortic Root Diameter 3.0 cm LA Systolic Diameter LX 4.1 cm 3.0 - 4.0 / 2.7 - 3.8 cm LA Volume 89.0 cm 18 - 58 / 22 - 52 cm Ascending Aorta Diameter 3.3 cm DOPPLER AV Peak Velocity 125.0 cm/s AV Peak Gradient 6.3 mmHg AV Mean Velocity 90.5 cm/s AV Mean Gradient 4.0 mmHg AV Velocity Time Integral 25.8 cm LVOT Peak Velocity 107.0 cm/s LVOT Peak Gradient 4.6 mmHg LVOT Mean Velocity 68.3 cm/s LVOT Mean Gradient 2.0 mmHg LVOT Velocity Time Integral 22.3 cm LVOT Stroke Volume 77.2 cm AV Area Cont Eq vti 3.0 cm AV Area Cont Eq pk 3.0 cm MV Peak Velocity 88.2 cm/s MV Peak Gradient 3.1 mmHg MV Mean Velocity 42.9 cm/s MV Mean Gradient 1.0 mmHg Mitral E Point Velocity 54.8 cm/s Mitral A Point Velocity 86.4 cm/s Mitral E to A Ratio 0.6 MV PHT Velocity 67.9 cm/s MV Deceleration [place] 319.0 cm/s MV Pressure Half Time 63.9 ms MV Area PHT 3.4 cm MV Deceleration Time 211.0 ms PV Peak Velocity 121.0 cm/s PV Peak Gradient 5.9 mmHg PV Mean Velocity 75.7 cm/s PV Mean Gradient 3.0 mmHg PV Velocity Time Integral 21.2 cm LV E' Lateral Velocity 6.0 cm/s Mitral E to LV E' Lateral Ratio 9.1 LV E' Septal Velocity 4.7 cm/s Mitral E to LV E' Septal Ratio 11.7
--- NOTE | 2017-04-18 12:28 | PN- Housestaff ---
Zach BRYAN,[facility] 04/18/17 1228: Subjective Follow-up For: Chest pain Subjective: Patient seen and examined. Offers no complaints. No overnight acute events. Patient still complains of chest pain which is relieved by Motrin. States improvement in his symptoms. Review of Systems Constitutional: Reports: see HPI. Objective Last 24 Hrs of Vital Signs/I&O Vital Signs Date Time Temp Pulse Resp B/P B/P Pulse O2 O2 Flow FiO2 Mean Ox Delivery Rate 04/18 1041 76 18 110/72 04/18 1041 76 18 110/72 04/18 0657 97.5 69 18 144/88 94 Room Air 04/17 2302 97.8 70 21 158/86 97 04/17 2100 Room Air Room Air 04/17 2018 97.8 69 22 158/88 95 Room Air 04/17 1850 97.3 73 16 128/73 94 Room Air 04/17 1628 97.3 66 16 137/79 95 Room Air Intake & Output 04/18 1600 04/18 0800 04/18 0000 Intake Total 200 Output Total 250 300 Balance -50 -300 Intake, Oral 200 Number 1 Bowel Movements Output, Urine 250 300 Patient 355 lb Weight Physical Exam General Appearance: Alert, Oriented X3, Cooperative Cardiovascular: Normal S1, Normal S2 Lungs: Clear to Auscultation, Normal Air Movement Abdomen: Normal Bowel Sounds, Soft Current Medications: Current Medications Sig/Annita Start time Last Medication Dose Route Stop Time Status Admin Acetaminophen 650 MG Q6P PRN 04/17 1900 DCD PO Acetaminophen 1,000 MG Q6P PRN 04/17 1900 DCD IV Aspirin Buffered 81 MG DAILY 04/18 1000 DCD 04/18 PO 1041 Atenolol 50 MG DAILY 04/18 1000 DCD 04/18 PO 1041 Enoxaparin Sodium 40 MG DAILY 04/18 1000 DCD SC Ezetimibe 10 MG DAILY 04/18 1000 DCD 04/18 PO 1040 Ibuprofen 400 MG TID PRN 04/18 1211 DCD PO Ibuprofen 600 MG TID 04/17 2200 DC 04/18 PO 0551 Ibuprofen 0 .STK-MED ONE 04/17 1935 DC PO Insulin Aspart 0 TIDAC 04/18 0800 DCD SC Lisinopril 10 MG DAILY 04/18 1000 DCD 04/18 PO 1041 Omeprazole 20 MG DAILY AC 04/18 0700 DCD 04/18 PO 0643 Venlafaxine HCl 75 MG DAILY 04/18 1000 DCD 04/18 PO 1041 Last 24 Hrs of Lab/Fernie Results Last 24 Hrs of Labs/Mics: Laboratory Tests 04/18/17 0641: Anion Gap 14, Estimated GFR > 60, BUN/Creatinine Ratio 27.1 H, Hemoglobin A1c 6.8 H, TSH 1.600, Free T4 0.79, CBC w Diff NO MAN DIFF REQ, RBC 5.38, MCV 96.9 H, MCH 32.7 H, RDW 13.8, MPV 8.5, Gran % 61.6, Lymphocytes % 24.4, Monocytes % 8.4, Eosinophils % 4.8, Basophils % 0.8, Absolute Granulocytes 6.1, Absolute Lymphocytes 2.4, Absolute Monocytes 0.8 H, Absolute Eosinophils 0.5, Absolute Basophils 0.1, PUBS MCHC 33.7 04/17/172103: Troponin I < 0.01 04/17/172051: Urine Color YEL, Urine Clarity CLEAR, Urine pH 6.0, Ur Specific [place] 1.020, Urine Protein NEG, Urine Ketones NEG, Urine Nitrite NEG, Urine Bilirubin NEG, Urine Urobilinogen 0.2, Ur Leukocyte Esterase NEG, Ur Microscopic EXAM NOT REQUIRED, Urine Hemoglobin NEG, Urine Glucose >=1000 H 04/17/17 1600: Troponin I < 0.01 Assessment/Plan Assessment: The patient is 61-year-old obese male with past medical history of hypertension hyperlipidemia CAD status post RCA stent in 1998 and diabetes. The patient presented to [facility] on 04/17 with the complaint of left-sided chest pain. -Vitals at time of presentation temperature 98.4,HR 69, RR 18, blood pressure 166/100 (recheck 110/59), 98% on room air. -Pertinent labs WBC 12.7 mg, troponins 2 sets negative -The patient was palced as an observation to telemetry floor and is being evaluated and treated for following conditions #Chest pain is most likely musculoskeletal in nature Serial troponins are negative. ECG shows no changes consistent with pericarditis and there is no pericardial effusion or regional wall motion abnormality on the echocardiogram. No significant events noted on telemetry * Stable to be discharged from cardiac point of veiw * Consider repeat outpatient nuclear stress testing in the future * Short course of Motrin PRN for the musculoskeletal chest pain. * Pt advised to follow-up with Dr. Eller's office within 1 week of discharge #Diabetes mellitus: We'll discharge her home regimen. HbA1c 6.8 #Obesity * TSH wnl, HbA1c 6.8, * Consider checking lipid panel outpt * Counselling on lifestyle modification #Smoker * Nicotine patch * Counselling on smoking cessation #Chronic medical conditions history of CAD status post catheterization, hyperlipidemia, hypertension continue aspirin lisinopril, atenolol and atorvastatin,zetia #Mental health continue Venlafaxine #Obstructive sleep apnea continue CPAP #DVT prophylaxis with Lovenox and Alps #Diet Heart healthy #CODE STATUS full code +++ Patient is observation status and is stable to be discharged today, follow- up instructions provided Problem List: 1. Chest pain with moderate risk for cardiac etiology Pain Ratin Pain Location: left sided chest pain Pain Goal: Pain 4 or less Pain Plan: prn Tomorrow's Labs & Rationales: n/a Rae Velasquez MD 04/18/17 1256: Attending MD Review Statement Attending Statement Attending MD Statement: examined this patient, discuss w/resident/PA/STREET LIGHT WIRER, agreed w/resident/PA/STREET LIGHT WIRER, reviewed EMR data (avail) Attending Assessment/Plan: Patient is improved today, chest pain improving. Serial EKG show NSR without acute changes, troponin negative, echocardiogram reviewed by cardiology. Patient is stable for discharge home. Will give Motrin for pain, continue all home medications, outpatient follow up.
[2017-04-18] MEDS ORDERED: IBUPROFEN400 M1 PO ×3 (12:35→12:51)
--- NOTE | 2017-04-18 12:35 | Cons- Cardiology ---
General Information and HPI Consulting Request Date of Consult: 04/18/17 Requested By: Maury BRYAN,Juan Reason for Consult: Chest pain Source of Information: patient, old records History of Present Illness: This is a very pleasant 61-year-old male with a past medical history of coronary artery disease with remote stents to the RCA in 1998, hypertension, hyperlipidemia, and diabetes who presents to [facility] with a chief complaint of moderate intensity intermittent left-sided sharp chest pain which has a reproducible quality and is sometimes exacerbated by lying on his left side. Not associated with shortness of breath or palpitations. Denies any recent viral symptoms. Denies any headache, slurring of speech, nausea, vomiting, or syncope. No exertional component. No orthopnea or paroxysmal nocturnal dyspnea. He did have a nuclear stress test in 2016 that did show a basal area of infarct with no evidence of ischemia. Allergies/Medications Allergies: Coded Allergies: NO KNOWN ALLERGIES (03/15/13) NKA PER ANTIBIOTIC ORDER SHEET OF 03/15/13 - [facility] Home Med List: Ascorbate Calcium (Vitamin C) 500 MG TABLET 1 TAB PO DAILY SUPPLEMENT ( Reported) Aspirin (Adult Low Dose Aspirin EC) 81 MG TABLET.DR 1 TAB PO DAILY HEART/BP ( Reported) Atenolol 50 MG TABLET 1 TAB PO DAILY BP (Reported) Atorvastatin Calcium (Lipitor) 80 MG TABLET 1 TAB PO DAILY CHOLESTEROL ( Reported) Cholecalciferol (Vitamin D3) (Vitamin D) 1,000 UNIT TABLET 1 TAB PO DAILY SUPPLEMENT (Reported) Cyanocobalamin (Vitamin B-12) (Unknown Strength) TABLET (Unknown Dose) PO DAILY SUPPLEMENT (Reported) Diclofenac Sodium 75 MG TABLET.DR 1 TAB PO BID PAIN/INFLAMMATION (Reported) Empagliflozin (Jardiance) 25 MG TABLET 1 TAB PO DAILY DM (Reported) Ezetimibe (Zetia) 10 MG TABLET 1 TAB PO DAILY CHOLESTEROL (Reported) Metformin HCl 500 MG TABLET 1 TAB PO 4XDAILY DM (Reported) Roslyn-3 Fatty Acids/Fish Oil (Fish Oil 1,200 MG Softgel) 360 MG-1,200 MG CAPSULE 1 CAP PO DAILY SUPPLEMENT (Reported) Ramipril 10 MG CAPSULE 1 CAP PO DAILY BP (Reported) Venlafaxine HCl (Venlafaxine HCl ER) 75 MG CAP.ER.24H 1 CAP PO DAILY MENTAL HEALTH (Reported) Current Medications: Current Medications Sig/Annita Start time Last Medication Dose Route Stop Time Status Admin Acetaminophen 650 MG Q6P PRN 04/17 1900 AC PO Acetaminophen 1,000 MG Q6P PRN 04/17 1900 AC IV Aspirin Buffered 81 MG DAILY 04/18 1000 AC 04/18 PO 1041 Atenolol 50 MG DAILY 04/18 1000 AC 04/18 PO 1041 Enoxaparin Sodium 40 MG DAILY 04/18 1000 AC SC Ezetimibe 10 MG DAILY 04/18 1000 AC 04/18 PO 1040 Ibuprofen 400 MG TID PRN 04/18 1211 AC PO Ibuprofen 600 MG TID 04/17 2200 DC 04/18 PO 0551 Ibuprofen 0 .STK-MED ONE 04/17 1935 DC PO Insulin Aspart 0 TIDAC 04/18 0800 AC SC Lisinopril 10 MG DAILY 04/18 1000 AC 04/18 PO 1041 Omeprazole 20 MG DAILY AC 04/18 0700 AC 04/18 PO 0643 Venlafaxine HCl 75 MG DAILY 04/18 1000 AC 04/18 PO 1041 Review of Systems Review of Systems: Review of systems as per HPI. The remainder of a 10 point review of systems was reviewed and was otherwise negative. 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 Psychosocial History Where Do You Live? Home Who Do You Live With? spouse Smoking Status: Current Everyday Smoker ETOH Use: denies use Illicit Drug Use: denies illicit drug use Functional Ability ADLs Independent: dressing, eating, toileting, bathing. Ambulation: independent IADLs Independent: shopping, housework, finances, food prep, telephone, transportation , medication admin. Exam & Diagnostic Data Vital Signs and I&O Vital Signs Date Time Temp Pulse Resp B/P B/P Pulse O2 O2 Flow FiO2 Mean Ox Delivery Rate 04/18 1041 76 18 110/72 04/18 1041 76 18 110/72 04/18 0657 97.5 69 18 144/88 94 Room Air 04/17 2302 97.8 70 21 158/86 97 04/17 2100 Room Air Room Air 04/17 2018 97.8 69 22 158/88 95 Room Air 04/17 1850 97.3 73 16 128/73 94 Room Air 04/17 1628 97.3 66 16 137/79 95 Room Air 04/17 1315 97.8 68 18 110/59 95 Room Air Intake & Output 04/18 1600 04/18 0804/18 0000 04/17 1600 04/17 0800 04/17 0000 Intake Total 200 120 Output Total 250 300 Balance -50 -300 120 Intake, Oral 200 120 Number 1 Bowel Movements Output, Urine 250 300 Patient 355 lb 355 lb Weight Weight Reported by Patient Measurement Method Physical Exam: General: no apparent distress. Alert. Eyes: No obvious scleral icterus. HEENT: No jugular venous distention or abnormal jugular venous pulsations. Cardiovascular: Normal intensity S1/S2. PMI not grossly displaced. Respiratory: Lungs clear to auscultation bilaterally. Abdomen: Soft, nontender with no guarding or rebound tenderness. Musculoskeletal: No clubbing or cyanosis noted Skin: No obvious rashes or ulcerations. Neurologic: No gross focal deficits noted. Lymph: No gross lymphadenopathy. Labs/Fernie Results: Laboratory Tests 04/18 04/17 0641 2104 Chemistry Sodium (137 - 145 mmol/L) 141 Potassium (3.5 - 5.1 mmol/L) 4.9 Chloride (98 - 107 mmol/L) 105 Carbon Dioxide (22 - 30 mmol/L) 23 Anion Gap (5 - 16) 14 BUN (9 - 20 mg/dL) 19 Creatinine (0.7 - 1.2 mg/dL) 0.7 Estimated GFR (>60 ml/min) > 60 BUN/Creatinine Ratio (7 - 25 %) 27.1 H Hemoglobin A1c (4.2 - 5.8 %) 6.8 H Troponin I (<0.11 ng/ml) < 0.01 TSH (0.270 - 4.200 uIU/mL) 1.600 Free T4 (0.78 - 2.44 ng/dL) 0.79 Hematology CBC w Diff NO MAN DIFF REQ WBC (4.8 - 10.8 /CUMM) 10.0 RBC (4.70 - 6.10 /CUMM) 5.38 Hgb (14.0 - 18.0 G/DL) 17.6 Hct (42 - 52 %) 52.2 H MCV (80.0 - 94.0 FL) 96.9 H MCH (27.0 - 31.0 PG) 32.7 H RDW (11.5 - 14.5 %) 13.8 Plt Count (130 - 400 /CUMM) 236 MPV (7.4 - 10.4 FL) 8.5 Gran % (42.2 - 75.2 %) 61.6 Lymphocytes % (20.5 - 51.1 %) 24.4 Monocytes % (1.7 - 9.3 %) 8.4 Eosinophils % (0 - 5 %) 4.8 Basophils % (0.0 - 2.0 %) 0.8 Absolute Granulocytes (1.4 - 6.5 /CUMM) 6.1 Absolute Lymphocytes (1.2 - 3.4 /CUMM) 2.4 Absolute Monocytes (0.10 - 0.60 /CUMM) 0.8 H Absolute Eosinophils (0.0 - 0.7 /CUMM) 0.5 Absolute Basophils (0.0 - 0.2 /CUMM) 0.1 PUBS MCHC (33.0 - 37.0 G/DL) 33.7 04/17 04/17 04/17 2052 1600 1211 Chemistry Sodium (137 - 145 mmol/L) 137 Potassium (3.5 - 5.1 mmol/L) 5.1 Chloride (98 - 107 mmol/L) 105 Carbon Dioxide (22 - 30 mmol/L) 21 L Anion Gap (5 - 16) 12 BUN (9 - 20 mg/dL) 17 Creatinine (0.7 - 1.2 mg/dL) 0.7 Estimated GFR (>60 ml/min) > 60 BUN/Creatinine Ratio (7 - 25 %) 24.3 Glucose (65 - 99 mg/dL) 101 H Calcium (8.4 - 10.2 mg/dL) 9.5 Total Bilirubin (0.2 - 1.3 mg/dL) 0.6 AST (17 - 59 U/L) 27 ALT (21 - 72 U/L) 49 Alkaline Phosphatase (< 127 U/L) 95 Troponin I (<0.11 ng/ml) < 0.01 < 0.01 C-Reactive Prot, Quant (<1.0 mg/dL) < 0.5 Total Protein (6.3 - 8.2 g/dL) 7.2 Albumin (3.5 - 5.0 g/dL) 4.4 Globulin (1.9 - 4.2 gm/dL) 2.8 Albumin/Globulin Ratio (1.1 - 2.2 %) 1.6 Lipase (23 - 300 U/L) 256 Coagulation D-Dimer High Sensitivty (0 - 243 ng/ml) < 200 Urines Urine Color (YEL,AMB,STR) YEL Urine Clarity (CLEAR) CLEAR Urine pH (5.0 - 8.0) 6.0 Ur Specific [place] (1.001 - 1.035) 1.020 Urine Protein (NEG,<30 MG/DL) NEG Urine Ketones (NEG) NEG Urine Nitrite (NEG) NEG Urine Bilirubin (NEG) NEG Urine Urobilinogen (0.1 - 1.0 EU/dl) 0.2 Ur Leukocyte Esterase (NEG) NEG Ur Microscopic EXAM NOT REQUIRED Urine Hemoglobin (NEG) NEG Urine Glucose (N MG/DL) >=1000 H 04/17 1125 Hematology CBC w Diff NO MAN DIFF REQ WBC (4.8 - 10.8 /CUMM) 12.7 H RBC (4.70 - 6.10 /CUMM) 5.29 Hgb (14.0 - 18.0 G/DL) 17.3 Hct (42 - 52 %) 50.7 MCV (80.0 - 94.0 FL) 95.7 H MCH (27.0 - 31.0 PG) 32.8 H RDW (11.5 - 14.5 %) 13.5 Plt Count (130 - 400 /CUMM) 248 MPV (7.4 - 10.4 FL) 7.9 Gran % (42.2 - 75.2 %) 69.5 Lymphocytes % (20.5 - 51.1 %) 18.1 L Monocytes % (1.7 - 9.3 %) 7.9 Eosinophils % (0 - 5 %) 3.8 Basophils % (0.0 - 2.0 %) 0.7 Absolute Granulocytes (1.4 - 6.5 /CUMM) 8.8 H Absolute Lymphocytes (1.2 - 3.4 /CUMM) 2.3 Absolute Monocytes (0.10 - 0.60 /CUMM) 1.0 H Absolute Eosinophils (0.0 - 0.7 /CUMM) 0.5 Absolute Basophils (0.0 - 0.2 /CUMM) 0.1 PUBS MCHC (33.0 - 37.0 G/DL) 34.2 Diagnostic Data EKG Results Tracing was personally reviewed and shows sinus rhythm at 67 bpm with no obvious ST elevations or VA Depression CXR Results No acute pulmonary findings. Other Results Telemetry tracings were personally reviewed and shows sinus rhythm Echocardiogram Left ventricular cavity size normal. Left ventricular wall thickness mildly increased. No obvious regional wall motion abnormalities. Left ventricular ejection fraction is estimated at > 55 %. Abnormal relaxation filling pattern of the left ventricle for age (stage 1 diastolic dysfunction). Normal right ventricular size and function. No pericardial effusion. Assessment/Plan Assessment/Plan 1. Chest pain, reproducible 2. History of coronary artery disease with remote PCI to the RCA 3. History of diabetes known 4. History of hypertension 5. History of hyperlipidemia The patient's chest pain is most likely musculoskeletal in nature. Serial troponins are negative. ECG shows no changes consistent with pericarditis and there is no pericardial effusion or regional wall motion abnormality on the echocardiogram. No significant events noted on telemetry. 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 He is advised to return to the hospital via 911 with any recurrent or worsening symptoms. He can use a short course of Motrin PRN for the musculoskeletal chest pain. Kirill Jolly MD [facility] Consult Acknowledgment - Thank you for your consult request.
--- NOTE | 2017-04-18 12:37 | Patient Discharge Instructions ---
Discharge Instructions General Discharge Information You were seen/treated for: Chest apin Watch for these problems: fever, chest pain at rest and with exertion, shortness of breath, palpitations Special Instructions: please follow up with Dr. Hanks office within 1 week of discharge Please follow-up PCP within one week of discharge Please be careful in use of NSAIDS, overuse can cause bleeding and kidney damage (NSAIDS include ibuprofen and diclofenac, aleeve, naproxen, ketorolac etc) Diet Recommended Diet: Diabetic, Heart Healthy Activity Activity Self Limited: Yes Acute Coronary Syndrome Inclusion Criteria At DC or during hospital stay patient has or had the following: ACS DIAGNOSIS No Discharge Core Measures Meds if any: Prescribed or Continued at Discharge Meds if any: NOT Prescribed or Continued at Discharge Congestive Heart Failure Inclusion Criteria At DC or during hospital stay patient has or had the following: CHF DIAGNOSIS No Discharge Core Measures Meds if any: Prescribed or Continued at Discharge Meds if any: NOT Prescribed or Continued at Discharge Cerebrovascular accident Inclusion Criteria At DC or during hospital stay patient has or had the following: CVA/TIA Diagnosis No Discharge Core Measures Meds if any: Prescribed or Continued at Discharge Meds if any: NOT Prescribed or Continued at Discharge Venous thromboembolism Inclusion Criteria VTE Diagnosis No VTE Type NONE VTE Confirmed by (Test) NONE Discharge Core Measures - Per Current guidelines, there needs to be overlap - treatment for the first 5 days of Warfarin therapy. - If discharged on Warfarin prior to 5 days of - overlap therapy, the patient will need to be - assessed for post discharge needs including - *Post discharge parental anticoagulation - *Warfarin and/or parental anticoagulation education - *Follow up date to check INR post discharge At least 5 days overlap therapy as Inpatient No Meds if any: Prescribed or Continued at Discharge Note: Overlap Therapy is Warfarin and Anticoagulant Meds if any: NOT Prescribed or Continued at Discharge
== END 2017-04-18 13:05 ==
LOC: ERH 10:35 → ERHI 18:18 → 1NO 18:18 → ENRESERV 19:02 → ENTRNSPT 19:23 → EDTRNSPTSTS 19:37 → EDTRNSPT 19:37 → 1NO 19:42 → CMPTRNSPT 19:53 → ENPENDDIS 04-18 12:47 → 1NO 04-18 13:05
PROVIDERS: Physician Assistant Medical; Student in an Organized Health Care Education/Training Program
DX: R07.9 Chest pain, unspecified (principal); I25.10 Atherosclerotic heart disease of native coronary artery without angina pectoris; E11.9 Type 2 diabetes mellitus without complications; I10 Essential (primary) hypertension; E78.5 Hyperlipidemia, unspecified; Z79.84 Long term (current) use of oral hypoglycemic drugs; Z79.82 Long term (current) use of aspirin; F17.200 Nicotine dependence, unspecified, uncomplicated
CPT/HCPCS: 6020; 36415; 74176; 81003; 82436; 93005; 93010; 93306; G0378; J1650

== ENCOUNTER 2017-09-16 03:08 | Emergency (ER) | payer OTHER ==
[~2017-09-16] VITALS: Ht 182.9 cm; Wt 158.8 kg
[~2017-09-16 03:08] MED LIST changes: +ADULT LOW DOSE81 MG PO; +ATENOLOL50 M1 PO; +DICLOFENAC SODI75 M2 PO; +FISH OIL 1,2001 EAC4 PO; +IBUPROFEN400 M1 PO; +JARDIANCE25 M1 PO; +LIPITOR80 M1 PO; +METFORMIN HCL500 M3 PO; +RAMIPRIL10 M1 PO; +VENLAFAXINE HCL75 M1 PO; +VITAMIN B-121000 MC3 PO; +VITAMIN C500 M6 PO; +VITAMIN D1000 UNIT PO; +ZETIA10 M1 PO
--- NOTE | 2017-09-16 03:22 | ED NECK/BACK PAIN COMPLAINT ---
History of Present Illness General Chief Complaint: General Adult Stated Complaint: "TERRIBLE HEAD AND NECK PAIN" Source: patient, family Exam Limitations: no limitations Vital Signs & Intake/Output Vital Signs & Intake/Output Vital Signs Date Time Temp Pulse Resp B/P B/P Pulse O2 O2 Flow FiO2 Mean Ox Delivery Rate 09/16 0315 98.0 68 18 129/59 95 Room Air Allergies Coded Allergies: NO KNOWN ALLERGIES (03/15/13) NKA PER ANTIBIOTIC ORDER SHEET OF 03/15/13 - [facility] Reconcile Medications Ascorbate Calcium (Vitamin C) 500 MG TABLET 1 TAB PO DAILY SUPPLEMENT ( Reported) Aspirin (Adult Low Dose Aspirin EC) 81 MG TABLET.DR 1 TAB PO DAILY HEART/BP ( Reported) Atenolol 50 MG TABLET 1 TAB PO DAILY BP (Reported) Atorvastatin Calcium (Lipitor) 80 MG TABLET 1 TAB PO DAILY CHOLESTEROL ( Reported) Cholecalciferol (Vitamin D3) (Vitamin D) 1,000 UNIT TABLET 1 TAB PO DAILY SUPPLEMENT (Reported) Cyanocobalamin (Vitamin B-12) (Unknown Strength) TABLET (Unknown Dose) PO DAILY SUPPLEMENT (Reported) Cyclobenzaprine HCl 10 MG TABLET 1 TAB PO 4 TIMES/DAY PRN MUSCLE SPASM Empagliflozin (Jardiance) 25 MG TABLET 1 TAB PO DAILY DM (Reported) Ezetimibe (Zetia) 10 MG TABLET 1 TAB PO DAILY CHOLESTEROL (Reported) Ibuprofen 800 MG TABLET 1 TAB PO TID PRN pain Ibuprofen 400 MG TABLET 1 TAB PO TID PRN pain . Metformin HCl 500 MG TABLET 1 TAB PO 4XDAILY DM (Reported) [place]on-3 Fatty Acids/Fish Oil (Fish Oil 1,200 MG Softgel) 360 MG-1,200 MG CAPSULE 1 CAP PO DAILY SUPPLEMENT (Reported) Ramipril 10 MG CAPSULE 1 CAP PO DAILY BP (Reported) Venlafaxine HCl (Venlafaxine HCl ER) 75 MG CAP.ER.24H 1 CAP PO DAILY MENTAL HEALTH (Reported) Triage Note: PT TO ED C/O SORE NECK SINCE YESTERDAY, WORSE TODAY AND NOW HAS A HEADACHE. PAIN WORSE WHEN HE TURNS TO THE SIDE. TRIED MOTRIN AND EXCEDRIN. PAIN WORSE ON PALPATION TO TRAPEZEOUS MUSCLE. PT DENIES INJURY. STATES HE CAN'T SLEEP DR ESCALANTE AT BEDSIDE TO [facility] PT Triage Nurses Notes Reviewed? yes Onset: Gradual Duration: hour(s): Timing: recent history Location: neck pain Radiation: none Context: "I woke up and my neck really hurt." Method of Injury: unknown Loss of Consciousness: no loss of consciousness Modifying Factors: movement, rest Associated Symptoms: muscle spasm HPI: 61-year-old gentleman history of diabetes hypertension presents with neck stiffness, muscle spasm radiating up into the back of his head. He states that he woke up and felt tightness and pain in his muscles. He notes also that he has not had his diclofenac for the past week and a half. He notes pain with movement of his neck side to side. He has had no trauma, no increased exertion. He has no chest pain shortness of breath radiating pain fever chills phlegm. He is otherwise well and has no other concerns. Past History Travel History Traveled to [place] past 21 day No Medical History Any Pertinent Medical History? 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 Hx Contributory? No Review of Systems Review of Systems Constitutional: Denies: see HPI. Physical Exam Physical Exam Neck: muscle spasm, see below. Comments: Review of Systems - except as otherwise noted in HPI Review of Systems Constitutional:no symptoms. EENTM:no symptoms. Respiratory:no symptoms. Cardiovascular:no symptoms. GI:no symptoms. Genitourinary:no symptoms. Musculoskeletal:no symptoms. Skin:no symptoms. Neurological/Psychological:no symptoms. Hematologic/Endocrine:no symptoms. Immunologic/Allergic:no symptoms. All Other Systems: Reviewed and Negative Physical Exam Physical Exam General Appearance: well developed/nourished, no apparent distress Head: atraumatic, normal appearance Eyes: Bilateral: normal appearance. Ears, Nose, Throat: normal pharynx, normal ENT inspection Neck: muscle spasm and tenderness to palpation on bilateral cervical musculature , right worse than left. Respiratory: normal breath sounds, chest non-tender, no respiratory distress, quiet respiration, lungs clear Cardiovascular: regular rate/rhythm Gastrointestinal: normal bowel sounds, soft, non-tender, no organomegaly Back: normal inspection, normal range of motion Extremities: normal inspection, normal capillary refill, normal range of motion, no edema Neurologic/Psych: no motor/sensory deficits, awake, alert, oriented x 3 Skin: intact, normal color, warm/dry Core Measures CVA/TIA Diagnosis: No Progress Differential Diagnosis: muscle spasm vs other. Plan of Care: Current Medications Sig/Annita Start time Last Medication Dose Stop Time Status Admin Diazepam 10 MG ONCE ONE 09/16 344 CAN (Valium) 09/16 345 Departure Departure Disposition: HOME OR SELF CARE Condition: Stable Clinical Impression Primary Impression: Muscle spasm Referrals: Mitchel BRYAN,Gabriel Kim (PCP/Family) Departure Forms: Customer Survey General Discharge Information Prescriptions: Current Visit Scripts Cyclobenzaprine HCl 1 TAB PO 4 TIMES/DAY PRN MUSCLE SPASM #30 TAB Ref 1 Ibuprofen 1 TAB PO TID PRN pain #30 TAB Comments 09/16/17, 4:07am... pt feeling better after supportive medications... pt safe for discharge... ibuprofen and flexeril sent to pharmacy... close follow up advised.
[2017-09-16] MEDS ORDERED: IBUPROFEN800 M1 PO ×2 (03:38→04:37)
[2017-09-16] MEDS ORDERED: CYCLOBENZAPRINE10 M1 PO ×2 (03:38→04:37)
[2017-09-16 04:45] VITALS: BP 126/60
== END 2017-09-16 04:46 ==
LOC: ERH 03:08
DX: M62.838 Other muscle spasm (principal)
CPT/HCPCS: 96372; J1885